=== PATIENT | female | born 1955 | race Caucasian/White ===

== ENCOUNTER 2018-10-01 08:21 | Day surgery (SDC) | payer MEDICARE, MEDICAID ==
[~2018-10-01] VITALS: Ht 152.4 cm; Wt 58.6 kg
[2018-10-01] MEDS ORDERED: PROPOFOL 20 ML ONE (08:38)
[2018-10-01 09:25] VITALS: Ht 152.4 cm; Wt 58.6 kg
--- NOTE | 2018-10-01 09:28 | PREAC ---
Date/Time of Note Date/Time of Note DATE: 10/01/18 TIME: 09: Anesthesia Eval and Record Evaluation Time Pre-Procedure Interview DATE: 10/01/18 TIME: : Age 63 Sex female NPO: 8 hrs Preoperative diagnosis Change in bowel habit Planned procedure Colonoscopy Past Medical History Past Medical History: Includes Cardio: HTN Endo: Diabetes Surgery & Anesthesia Issues No known issue Meds Anticoagulation: No Beta Tila within 24 hr: No Reason Beta Tila not given: Pt. not on B-Tila Meds reviewed: Yes Allergies Allergies Reviewed: Yes Labs/Studies Labs Reviewed: Reviewed by anesthesiologist test: N/A Pre-procedure Exam Airway: Adequate mouth opening Mallampati: Mallampati I Teeth: Abnormal (Full denture) Lung: Normal Heart: Normal ASA Physical Status ASA physical status: 2 Emergency: None Planned Anesthetic General/MAC: MAC Planned Pain Management Parenteral pain med Pre-operative Attestations Prior to commencing anesthesia and surgery, the patient was re-evaluated, there was verification of: *The patient's identity *The results of appropriate recent lab work and preoperative vital signs *The above evaluation not changing prior to induction *Anesthetic plan, risk benefits, alternative and complications discussed with patient/family; questions answered; patient/family understands, accepts and wishes to proceed. WILFREDO DIAZ MD Oct 01, 2018 09:28
[2018-10-01] MEDS ORDERED: novolin SC (09:40)
[2018-10-01] MEDS ORDERED: diabetes med PO (09:40)
[2018-10-01] MEDS ORDERED: metformin PO (09:40)
[2018-10-01 09:52] VITALS: BP 173/73; PULSE 58; RESP 12
[2018-10-01] MEDS ORDERED: ONDANSETRON 4 MG INJ IV PRN (10:00)
[2018-10-01] MEDS ORDERED: FENTAnyl 50 MCG/ML VIAL IV PRN ×3 (10:00)
[2018-10-01] MEDS ORDERED: DIPHENHYDRAMINE 50 MG INJ IV PRN (10:00)
[2018-10-01] MEDS ORDERED: LABETALOL HCL 20MG INJ IV PRN (10:00)
[2018-10-01] MEDS ORDERED: METOCLOPRAMIDE 10 MG INJ IV PRN (10:00)
[2018-10-01] MEDS ORDERED: EPHEDrine SULFATE 50 MG/5 ML SYG IV PRN (10:00)
[2018-10-01] MEDS ORDERED: MEPERIDINE 25 MG INJ IV PRN (10:00)
[2018-10-01] MEDS ORDERED: hydrALAzine 20 MG INJ IV PRN (10:00)
[2018-10-01] MEDS ORDERED: MIDAZOLAM 1 MG/ML 2 ML INJ IV PRN (10:00)
[2018-10-01] MEDS ORDERED: OXYCODONE/ACETAMINOPHEN (5/325) TAB PO PRN ×2 (10:00)
--- NOTE | 2018-10-01 11:04 | PAC ---
Date/Time of Note Date/Time of Note DATE: 10/01/18 TIME: 11:01 Post-Anesthesia Notes Post-Anesthesia Note Last documented vital signs Vital Signs Date Temp Pulse Resp B/P (MAP) Pulse Ox O2 O2 Flow FiO2 Time Delivery Rate 10/01/18 97.4 58 12 173/73 98 Room Air 09:52 (106) Activity: WNL Respiratory function: WNL Cardiovascular function: WNL Mental status: Baseline Pain reasonably controlled: Yes Hydration appropriate: Yes Nausea/Vomiting absent: Yes Comments BT: 98.3, BP: 137/64, HR: 61, RR: 24, Pulse Ox: 99 WILFREDO DIAZ MD Oct 01, 2018 11:03
--- NOTE | 2018-10-02 13:32 | CONS ---
DATE OF ADMISSION: 10/01/2018 DATE OF CONSULTATION: PATIENT NAME: MACHO MEHTA TYPE OF CONSULTATION: Preoperative gastroenterology. Dear Dr. Oleary: I thank you very much for this kind referral. HISTORY OF PRESENT ILLNESS: The patient is a 63-year-old female patient who has been referred to me for further evaluation of left lower quadrant abdominal pain and change in the bowel habit. She had abdominal CT scan done and it was normal. No past history of colon neoplasm. The patient needs scre ening colonoscopy. Her appetite has been good, and she is not losing any weight. No upper abdominal pain. Not on nonsteroidal anti-inflammatory agents. Status post cholecystectomy. No liver disease . Not a hypertensive, has diabetes. No heart disease, lung problem or kidney disease. Status post hysterectomy. SOCIAL HISTORY: Nonsmoker. No alcohol abuse. FAMILY HISTORY: No family history of gastrointestinal tract neoplasm. She is 5 feet tall and weighs 133 pounds. BMI 26, blood pressure 148/82. HEART: Normal heart sounds. LUNGS: Clear. ABDOMEN: Soft, no masses. Normal bowel sounds. NEUROLOGIC: Normal neurological exam. IMPRESSION: 1. Left lower quadrant abdominal pain. 2. Change in the bowel habit. 3. The patient had abdominal CT scan and it was normal. 4. The patient needs screening colonoscopy. 5. Diabetes mellitus. 6. Status post cholecystectomy and hysterectomy. 7. Slightly elevated BMI and high blood pressure. PLAN: 1. Follow up with the primary MD for the management of slightly elevated BMI and elevated blood pres sure. 2. Colonoscopy for further evaluation. The procedure and possible complications are well explained to the patient. She understands and cons ents to the procedure. I thank you once again. With warmest personal regards, Dictated By: OLIVIA PATRICK/SHORTY Conf#: [id number] DID#: [id number]
== END 2018-10-01 14:43 | disposition home or self-care (01) ==
LOC: GIL 08:21
PROVIDERS: ATTEND Internal Medicine Gastroenterology
DX: R19.4 Change in bowel habit (principal); I10 Essential (primary) hypertension; E11.9 Type 2 diabetes mellitus without complications
CPT/HCPCS: 82962